=== PATIENT | male | born 1975 | race Hispanic/Latino ===

== ENCOUNTER 2018-11-06 18:14 | Emergency (ER) | payer OTHER ==
--- NOTE | 2018-11-06 20:23 | RAD REPORT ---
EXAM DESCRIPTION: RAD - Hand Left 3 View - 11/06/2018 8:09 pm CLINICAL HISTORY: PAIN COMPARISON: No comparisons FINDINGS: No fracture, dislocation or radiopaque foreign body.
[2018-11-06] MEDS ORDERED: TETANUS & DIPHTHERIA TOX,ADULT 0.5 ML VIAL ONE (20:35)
[2018-11-06] MEDS ORDERED: CEFTRIAXONE/SWI 1gm 1 GM/10 ML SYR ONE (20:35)
--- NOTE | 2018-11-06 21:39 | ER ---
Nurse's Notes [facility] Name: Mihai Baez Age: 43 yrs Sex: Male : 1975 Arrival Date: 11/06/2018 Time: 18:25 Bed 25 Private MD: Diagnosis: Effects of high-pressure fluids;Puncture wound with foreign body of left hand Presentation: 11/06 18:35 Presenting complaint: Patient states: 2400 psi pressure pipes that the gasket blew off tw2 and the pressure cut, it about an hour ago, at first it bleed a lot i put pressure, it was just water in the pipes. Transition of care: patient was not received from another setting of care. Onset of symptoms was November 06, 2018. Risk Assessment: Do you want to hurt yourself or someone else? Patient reports no desire to harm self or others. Initial Sepsis Screen: Does the patient meet any 2 criteria? No. Patient's initial sepsis screen is negative. Does the patient have a suspected source of infection? No. Patient's initial sepsis screen is negative. Care prior to arrival: None. 18:35 Method Of Arrival: Ambulatory tw2 18:35 Acuity: MARGARITA 3 tw2 Triage Assessment: 18:37 General: Appears in no apparent distress. well groomed, Behavior is calm, cooperative, tw2 appropriate for age. Pain: Complains of pain in palmar aspect of proximal phalanx of left thumb. Musculoskeletal: Range of motion: intact in all extremities. Musculoskeletal: Reports "it was a lot more swollen earlier but it has gone down". Injury Description: pressure injury. Historical: - Allergies: 18:39 No Known Allergies; tw2 - Home Meds: 18:39 None [Active]; tw2 - PMHx: 18:39 None; tw2 - PSHx: 18:39 None; tw2 - Immunization history:: Last tetanus immunization: unknown. - Social history:: Smoking status: Patient/guardian denies using tobacco. - Ebola Screening: : Patient denies travel to an Ebola-affected area in the 21 days before illness onset. Screenin:42 Abuse screen: Denies threats or abuse. Denies injuries from another. Nutritional ls4 screening: No deficits noted. Tuberculosis screening: No symptoms or risk factors identified. Fall Risk None identified. Assessment: 18:50 General: Appears in no apparent distress. uncomfortable, Behavior is calm, cooperative. ls4 Neuro: No deficits noted. Cardiovascular: No deficits noted. Respiratory: No deficits noted. Derm: Wound noted left hand and palmar aspect of proximal phalanx of left thumb Wound is JAGGED 4 CM ON LEFT HAND THUMB. 19:19 Reassessment: Patient and/or family updated on plan of care and expected duration. Pain ls4 level reassessed. Patient is alert, oriented x 3, equal unlabored respirations, skin warm/dry/pink. 20:00 Reassessment: Patient and/or family updated on plan of care and expected duration. Pain ls4 level reassessed. Patient is alert, oriented x 3, equal unlabored respirations, skin warm/dry/pink. 21:00 Reassessment: Patient and/or family updated on plan of care and expected duration. Pain ls4 level reassessed. Patient is alert, oriented x 3, equal unlabored respirations, skin warm/dry/pink. Vital Signs: 18:38 BP 161 / 84; Pulse 73; Resp 19; Temp 98.3(TE); Pulse Ox 98% on R/A; Weight 95.25 kg tw2 (R); Height 5 ft. 7 in. (170.18 cm) (R); Pain 4/10; 19:30 BP 138 / 82; Pulse 70; Resp 16; Pulse Ox 99% on R/A; ls4 21:14 BP 137 / 98; Pulse 71; Resp 16; Pulse Ox 98% on R/A; Pain 1/10; ls4 22:03 BP 130 / 84; Pulse 71; Resp 16; Pulse Ox 99% on R/A; ls4 23:09 BP 128 / 90; Pulse 88; Resp 16; Temp 98.4; Pulse Ox 99% on R/A; Pain 1/10; ls4 18:38 Body Mass Index 32.89 (95.25 kg, 170.18 cm) tw2 ED Course: 18:25 Patient arrived in ED. mr 18:37 Triage completed. tw2 18:37 Arm band placed on. tw2 18:42 Perla Mace, RN is Primary Nurse. ls4 18:42 Patient has correct armband on for positive identification. Bed in low position. Call ls4 light in reach. Side rails up X 1. 18:42 bus monitor on. Pulse ox on. NIBP on. Diet: Patient is NPO. ls4 18:42 No provider procedures requiring assistance completed. ls4 19:06 Ludwin Rossi MD is Attending Physician. 20:06 Hand Left 3 View XRAY In Process Unspecified. EDMS 22:42 Inserted saline lock: 20 gauge in right antecubital area, using aseptic technique. ls4 23:41 Report given to hung Brandt . ls4 23:41 Patient transferred, IV remains in place. 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 Lot #: [id number]. } {Note: [employer] A116A2 AUG 02 2010.} Route: IM; Site: right deltoid; 20:55 Follow up: Response: No adverse reaction ls4 20:25 Drug: Rocephin - (cefTRIAXone) 1 grams {Note: PER PROTOCOL .} Route: IVPB; Infused ls4 Over: 10 mins; Site: right antecubital; 20:35 Follow up: IV Status: Completed infusion; IV Intake: 10ml ls4 Intake: 20:35 IV: 10ml; Total: 10ml. ls4 Outcome: 21:38 ER care complete, transfer ordered by . 23:40 Transferred by ground EMS to [facility], Transfer form completed. X-rays sent ls4 w/ patient. 23:40 Condition: stable 23:40 Instructed on the need for transfer, Demonstrated understanding of need for transfer 23:42 Patient left the ED. ls4 Signatures: Dispatcher [employer] EDWI Neha Pedro Tara, RN RN tw2 Ludwin Rossi MD MD gs Stewart, Lisa RN RN ls4 Corrections: (The following items were deleted from the chart) 22:43 22:42 Inserted saline lock: 20 gauge in right antecubital area, using aseptic ls4 technique. Blood collected. ls4
--- NOTE | 2018-11-06 21:39 | EDPHYS ---
Physician Documentation [facility] Name: Mihai Baez Age: 43 yrs Sex: Male : 1975 Arrival Date: 11/06/2018 Time: 18:25 Bed 25 Private MD: ED Physician Ludwin Rossi HPI: 11/06 21:32 This 43 yrs old Male presents to ER via Ambulatory with complaints of Thumb gs Injury. 21:32 The patient or guardian reports decreased range of motion, injury. The complaints gs affect the left hand diffusely. 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 Onset: The symptoms/episode began/occurred acutely, gradually. Modifying factors: the symptoms are aggravated by movement. Associated signs and symptoms: Pertinent negatives: numbness distally. Severity of symptoms: At their worst the symptoms were moderate, in the emergency department the symptoms are unchanged. The patient has not experienced similar symptoms in the past. Historical: - Allergies: 18:39 No Known Allergies; tw2 - Home Meds: 18:39 None [Active]; tw2 - PMHx: 18:39 None; tw2 - PSHx: 18:39 None; tw2 - Immunization history:: Last tetanus immunization: unknown. - Social history:: Smoking status: Patient/guardian denies using tobacco. - Ebola Screening: : Patient denies travel to an Ebola-affected area in the 21 days before illness onset. ROS: 21:32 All other systems are negative. gs Exam: 21:32 ENT: Nares patent. No nasal discharge, no septal abnormalities noted. Tympanic gs membranes are normal and external auditory canals are clear. Oropharynx with no redness, swelling, or masses, exudates, or evidence of obstruction, uvula midline. Mucous membranes moist. Cardiovascular: Regular rate and rhythm with a normal S1 and S2. No gallops, murmurs, or rubs. Normal PMI, no JVD. No pulse deficits. Respiratory: Lungs have equal breath sounds bilaterally, clear to auscultation and percussion. No rales, rhonchi or wheezes noted. No increased work of breathing, no retractions or nasal flaring. Back: No spinal tenderness. No costovertebral tenderness. Full range of motion. Neuro: Awake and alert, GCS 15, oriented to person, place, time, and situation. Cranial nerves II-XII grossly intact. Motor strength 5/5 in all extremities. Sensory grossly intact. Cerebellar exam normal. Normal gait. 21:32 Constitutional: The patient appears alert, awake. 21:32 Musculoskeletal/extremity: Extremities: noted in the palmar aspect of proximal phalanx of left thumb, palm of left hand and Left first web space: pain, puncture, tenderness, PUNCTURE SWELLING ABRASION L THENAR EMINENCE, Pulses: are normal with no appreciated deficits, Sensation intact. Vital Signs: 18:38 BP 161 / 84; Pulse 73; Resp 19; Temp 98.3(TE); Pulse Ox 98% on R/A; Weight 95.25 kg tw2 (R); Height 5 ft. 7 in. (170.18 cm) (R); Pain 4/10; 19:30 BP 138 / 82; Pulse 70; Resp 16; Pulse Ox 99% on R/A; ls4 21:14 BP 137 / 98; Pulse 71; Resp 16; Pulse Ox 98% on R/A; Pain 1/10; ls4 22:03 BP 130 / 84; Pulse 71; Resp 16; Pulse Ox 99% on R/A; ls4 23:09 BP 128 / 90; Pulse 88; Resp 16; Temp 98.4; Pulse Ox 99% on R/A; Pain 1/10; ls4 18:38 Body Mass Index 32.89 (95.25 kg, 170.18 cm) tw2 MDM: 20:02 Patient medically screened. gs 21:32 Differential diagnosis: FRACTURE, HIGH PRESSURE INJECTION INJURY. Data reviewed: vital gs signs, nurses notes, radiologic studies. Counseling: I had a detailed discussion with the patient and/or guardian regarding: the historical points, exam findings, and any diagnostic results supporting the discharge/admit diagnosis, the need to transfer to another facility. Physician consultation: Dharmesh Saravia MD after a discussion of the case, a recommendation for transfer for higher level of care is made. 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 Lot #: [id number]. } {Note: [employer] A116A2 AUG 02 2010.} Route: IM; Site: right deltoid; 20:55 Follow up: Response: No adverse reaction ls4 20:25 Drug: Rocephin - (cefTRIAXone) 1 grams {Note: PER PROTOCOL .} Route: IVPB; Infused ls4 Over: 10 mins; Site: right antecubital; 20:35 Follow up: IV Status: Completed infusion; IV Intake: 10ml ls4 Disposition: 11/06/18 21:38 Transfer ordered to [facility]. Diagnosis are Effects of high-pressure fluids, Puncture wound with foreign body of left hand. - Reason for transfer: Higher level of care. - Accepting physician is BRYSON. - Condition is Stable. - Problem is new. - Symptoms are unchanged. Signatures: Dispatcher [employer] EDEllen Clark RN RN tw2 Ludwin Rossi MD MD gs Stewart, Lisa, RN RN ls4 Corrections: (The following items were deleted from the chart) 23:42 21:38 11/06/2018 21:38 Transfer ordered to [facility]. ls4 Diagnosis is Effects of high-pressure fluids; Puncture wound with foreign body of left hand. Reason for transfer: Higher level of care. Accepting physician is BRYSON. Condition is Stable. Problem is new. Symptoms are unchanged. gs
== END 2018-11-06 23:42 | disposition short-term general hospital (02) ==
LOC: ER 18:14
DX: S61.432A Puncture wound without foreign body of left hand, initial encounter (principal); T70.4XXA Effects of high-pressure fluids, initial encounter; Z23 Encounter for immunization
CPT/HCPCS: 90471; 90714; 96374; 99285; J0696